=== PATIENT | female | born 1970 | race Caucasian/White ===

== ENCOUNTER 2017-06-06 16:38 | Outpatient (RCR) | payer OTHER | END 2017-06-07 | LOC: PT 16:38 | PROVIDERS: ATTEND Podiatrist Foot & Ankle Surgery | DX: M20.21 Hallux rigidus, right foot (principal); R26.2 Difficulty in walking, not elsewhere classified; M62.81 Muscle weakness (generalized) ==

== ENCOUNTER 2017-06-22 16:58 | Outpatient (RCR) | payer OTHER | END 2017-07-08 | LOC: PT 16:58 | PROVIDERS: ATTEND Podiatrist Foot & Ankle Surgery | DX: M20.21 Hallux rigidus, right foot (principal); M62.81 Muscle weakness (generalized); R26.2 Difficulty in walking, not elsewhere classified ==

== ENCOUNTER → 2018-02-13 | Day surgery (SDC) | payer OTHER ==
--- NOTE | 2018-02-09 15:28 | Diagnostic Imaging Report ---
EXAMINATION: PA and lateral views of the chest. COMPARISON: None CLINICAL HISTORY: Preadmission, left foot surgery DISCUSSION: Lines/tubes: None. Lungs: The lungs are well inflated and clear. No pneumonia or pulmonary edema. Pleura: No pleural effusion or pneumothorax. Heart and mediastinum: The cardiomediastinal silhouette is normal. Bones and soft tissues: No acute bony abnormalities. IMPRESSION: No acute cardiopulmonary abnormalities. Signed by: Dr. Esdras Luevano M.D. on 02/09/2018 3:25 PM
[2018-02-09 15:39] LABS: BASOPHILS # (AUTO) 0.1 (0.0-0.1); BASOPHILS % 0.8 % (0.0-1.0); EOSINOPHILS # (AUTO) 0.3 (0.0-0.4); EOSINOPHILS % 4.3 % (0.0-6.0); HEMATOCRIT 39.7 % (34.2-44.1); HEMOGLOBIN 13.2 g/dL (12.0-16.0); LYMPHOCYTES # (AUTO) 1.9 (1.0-3.2); LYMPHOCYTES % 25.6 % (18.0-39.1); MEAN CORPUSCULAR HEMOGLOBIN 29.9 pg (28-32); MEAN CORPUSCULAR HGB CONC 33.2 g/dL (31-35); MONOCYTES # (AUTO) 0.8 (0.2-0.8); MONOCYTES % 10.9 % (4.4-11.3); NEUTROPHILS # (AUTO) 4.3 (2.1-6.9); NEUTROPHILS % 58.3 % (38.7-80.0); PLATELET COUNT 236 x10e3/uL (140-360); RED BLOOD COUNT 4.41 x10e6/uL (3.6-5.1); RED CELL DISTRIBUTION WIDTH 12.8 % (11.7-14.4)
[~2018-02-13] MED LIST: BACITRACIN 50,000 UNIT VIAL ONE; BUPIVACAINE HCL 0.5% INJ 30 ML VIAL INJ ONE; CEFAZOLIN SOD 1 GM VIAL ONE; DEXAMETHASONE SOD PHOS INJ 4 MG/ML VIAL ONE; EXCEDRIN MIGRA1 EAC3 PO; FENTANYL CITRATE/PF 100MCG/2 ML INJ ONE; HYDROMORPHONE 2MG/ML 2 MG/ML ML ONE; KETOROLAC TROMETHAMINE 30 MG/ML VIAL ONE; LIDOCAINE HCL 2% LOCAL INJ 5 ML SDV VIAL INJ ONE; MIDAZOLAM HCL 2 MG/2 ML VIAL ONE; ONDANSETRON HCL INJ 2 MG/ML VIAL ONE; PROPOFOL IV EMULSION 10 MG/ML 20 ML VIAL ONE; SEVOFLURANE INHAL SOLN 250 ML PEN BTL ONE
--- OUTSIDE RECORDS SUMMARY | 2018-02-13 05:10 | XMS REPORT ---
Author Author [facility] Address Unknown Phone Unavailable Care Team Providers Care Manufacturing Plant Controller Name Role Phone MARIAH Jonathan ABRAHAM Unavailable Unavailable Problems This patient has no known problems. Allergies, Adverse Reactions, Alerts This patient has no known allergies or adverse reactions. Medications This patient has no known medications. Results Test Description Test Time Test Comments Text Results Atomic Results Result Comments CHEST 2 VIEWS 2018-02-09 15:25:00 [place] [address] Patient Name: ERIKA HAYES MR #: [id number] : 1970 Age/Sex: 47/F Req #: [id number] Adm Physician: Ordered by: JARAD LEMUS DPM Report #: [id number] Location: OR Room/Bed: Procedure: [id number] DX/CHEST 2 VIEWS Exam Date: 02/09/18 Exam Time: 1509 REPORT STATUS: Signed EXAMINATION: PA and lateral views of the chest. COMPARISON: None CLINICAL HISTORY: Preadmission, left foot surgery DISCUSSION: Lines/tubes: None. Lungs: The lungs are well inflated and clear. No pneumonia or pulmonary edema. Pleura: No pleural effusion or pneumothorax. Heart and mediastinum: The cardiomediastinal silhouette is normal. Bones and soft tissues: No acute bony abnormalities. IMPRESSION: No acute cardiopulmonary abnormalities. Signed by: Dr. Asael Perez M.D. on 02/09/2018 3:25 PM Dictated By: ASAEL PEREZ MD 152 Transcribed By: JOHAN on 02/09/18 152 COPY TO: JARAD LEMUS DPM CHEST 2 VIEWS [place] [address] Patient Name: ERIKA HAYES MR #: [id number] : 1970 Age/Sex: 46/F Req #: [id number] Adm Physician: Ordered by: JARAD LEMUS DPM Report #: [id number] Location: OR Room/Bed: Procedure: [id number] DX/CHEST 2 VIEWS Exam Date: 02/17/17 Exam Time: 1440 REPORT STATUS: Signed PROCEDURE: Frontal and lateral views of the chest. COMPARISON: None. INDICATIONS: PRE-OP FINDINGS: Lines/tubes: None. Lungs: The lungs are well inflated and clear. There is no evidence of pneumonia or pulmonary edema. Pleura: There is no pleural effusion or pneumothorax. Heart and mediastinum: The heart and the mediastinum are normal. Bones: No acute bony abnormality. IMPRESSION: No acute cardiopulmonary disease. Dictated by: Guillermo Yun M.D. on 02/17/2017 at 15:56 Electronically approved by: Guillermo Yun M.D. on 02/17/2017 at 15:56 Dictated By: GUILLERMO YUN MD 1556 Transcribed By: SHELL on 02/17/17 1556 COPY TO: JARAD LEMUS DPM
--- NOTE | 2018-02-13 08:21 | Operative Report ---
DATE OF PROCEDURE: February 13, 2018 PREOPERATIVE DIAGNOSIS: Left hallux rigidus. POSTOPERATIVE DIAGNOSIS: Left hallux rigidus. PLANNED PROCEDURE: Left Daniel bunionectomy with 1st metatarsal implant. ANESTHESIA: General with a postoperative block consisting of 10 mL of 0.5% Marcaine plain mixed with 1 mL of dexamethasone phosphate. HEMOSTASIS: Pneumatic thigh tourniquet set at 350 mmHg for a total time of approximately 30 minutes. MATERIALS: One size 3 inta-bone reference toe implant, 2-0 Vicryl, 3-0 Vicryl, 4-0 Prolene. ESTIMATED BLOOD LOSS: Less than 10 mL. PATHOLOGY: None. DETAILS OF PROCEDURE: Patient was seen in the preoperative waiting room where the correct procedure and site was identified. The patient was brought to the operating room and placed on the operating table in the supine position. General anesthesia was initiated at this time. A well-padded pneumatic tourniquet was placed about the patient's left thigh. The left foot, ankle and leg was then exsanguinated with an Esmarch bandage, and the pneumatic thigh tourniquet was inflated to 350 mmHg for a total time of approximately 30 minutes. Attention was directed to the dorsomedial aspect of the patient's left foot where a 5 cm curvilinear incision was made directly over the 1st metatarsophalangeal joint. The incision was carried through the subcutaneous tissues them from deeper underlying structures. All vital neurovascular structures were identified and retracted medially and laterally, and all bleeders were cauterized or ligated as deemed necessary. At this time, a linear capsulotomy was performed at the level of 1st metatarsophalangeal joint, which allowed for good visualization of the 1st metatarsophalangeal joint. There was noted to be a large dorsal exostosis with osteophytosis and less than 50% of the articular cartilage remaining on the metatarsal head, and less than 40% remaining on the proximal phalanx. Through the same incision, a full lateral release was performed consisting of a deep transverse metatarsal ligament, lateral collateral ligament, as well as the fibular sesamoid ligament. The hallux was put through a range of motion and found to be functioning in a more anatomic alignment. Next, utilizing a sagittal saw, the medial eminence, lateral eminence and dorsal exostosis of the 1st metatarsal head were excised and passed off to the back table and rounded utilizing a rotary bur. The wound was then flushed with copious amounts of sterile saline. Next, per machine operator assistant protocol, the guidewire was placed into the metatarsal head and confirmed via intraoperative fluoroscopy. The reamer was used to drill the pilot plant technician hole in the metatarsal head. Next, the guidewire was removed and placed into the proximal phalanx site and the reamer was used for the pilot plant technician hole. The wound was again flushed with copious amounts of sterile saline. Utilizing machine operator assistant protocol, the grommets were then placed and impacted into correct position. The implant was then placed and noted to be good range of motion to the 1st metatarsophalangeal joint. The wound was then again flushed with copious amounts of sterile saline mixed with Bacitracin. Capsular and deep tissue were reapproximated with 2-0 Vicryl, subcutaneous tissue with 3-0 Vicryl and the skin was closed using a running interlocking stitch with 4-0 Prolene. The incision site was then dressed with Adaptic, 4 x 4s, Kerlix, Geovanni wrap, and a postop shoe. The patient tolerated the procedure and anesthesia well. Patient was transferred to the postoperative recovery unit with vital signs stable and vascular status intact. The patient was monitored there for a short period time before being sent home with the following written and oral instructions: 1. Keep the dressing clean, dry and intact. 2. The patient is to remain minimal partial weightbearing in a postop shoe and crutches, and to avoid excessive ambulation until being seen in the office. 3. The patient was given the office number and instructed to contact us if any problems should arise. Job#: [id number] [facility]
[2018-02-13 09:15] VITALS: BP 103/62
== END | disposition home or self-care (01) ==
LOC: OR 05:08
PROVIDERS: ATTEND Podiatrist Foot & Ankle Surgery
DX: M20.22 Hallux rigidus, left foot (principal); M25.775 Osteophyte, left foot; M26.609 Unspecified temporomandibular joint disorder, unspecified side; G47.33 Obstructive sleep apnea (adult) (pediatric); Z91.19 Patient's noncompliance with other medical treatment and regimen; I44.0 Atrioventricular block, first degree; Z01.810 Encounter for preprocedural cardiovascular examination; Z01.812 Encounter for preprocedural laboratory examination; Z01.818 Encounter for other preprocedural examination; Z79.82 Long term (current) use of aspirin; Z87.891 Personal history of nicotine dependence
CPT/HCPCS: 28291; 36415; 71046; 81025; 85025; 93005; C1776; J0690; J1100; J1170; J1885; J2001; J2250; J2405; J2704